=== PATIENT | female | born 1945 | race American Indian/Alaskan Native ===

== ENCOUNTER 2018-06-21 17:15 | Emergency (ER) | payer BC, MEDICARE ==
[2018-06-21 17:15] VITALS: BMI 34.7
[2018-06-21 17:24] VITALS: PULSE 67; TEMP 98.2
--- NOTE | 2018-06-21 18:36 | ED PDOC ---
Upper Extremity Pain/Injury Time Seen by Provider: 06/21/18 17:46 Chief Complaint (Nursing): Upper Extremity Problem/Injury Chief Complaint (Provider): Arm and shoulder pain History Per: Patient, EMS History/Exam Limitations: no limitations Onset/Duration Of Symptoms: Mins Current Symptoms Are (Timing): Still Present Pain Scale Rating Of: 8 Additional Complaint(s): 72 year old female presents to the ER via EMS complaining of right arm, right shoulder, and left elbow pain after missing a step and falling on her side today. She also reports having neck pain, frontal headache, and swelling to her lip. Patient states she was unable to get up after falling. Patient rates pain to be a 8/10. Denies LOC, numbness or tingling, visual changes, ligthheaded, dizzy, chest pain or SOB. PMD: Dr. Baires Past Medical History Reviewed: Historical Data, Nursing Documentation, Vital Signs Vital Signs: Last Vital Signs Temp 98.2 F 06/21/18 17:22 Pulse 67 06/21/18 17:22 Resp 19 06/21/18 17:22 BP 130/83 06/21/18 17:22 Pulse Ox 100 06/21/18 17:22 - Medical History PMH: HTN, Hypercholesterolemia, Malignancy (right breast), Peripheral Edema (chronic ankle swelling) Denies: Diabetes, HIV, Chronic Kidney Disease Other PMH: tremors - Surgical History Surgical History: No Surg Hx - Family History Family History: States: Hypertension - Home Medications Home Medications: Ambulatory Orders Medication Instructions Recorded Atorvastatin [Lipitor] 40 mg PO HS 05/04/16 Candesartan/Hydrochlorothiazid 1 tab PO DAILY 05/04/16 [Candesartan-Hctz 16-12.5 mg Tb] Ergocalciferol (Vitamin D2) 2,000 iu PO DAILY 05/04/16 [Vitamin D] Exemestane 25 mg PO DAILY 05/04/16 Alto-3S/Dha/Epa/Fish Oil [Fish 1 tab PO DAILY 05/04/16 Oil Alto-3 Softgel] Primidone [Mysoline] 250 mg PO TID 05/04/16 Propranolol HCl [Inderal Xl] 120 mg PO DAILY 05/04/16 Ubidecarenone [Coenzyme Q10] 100 mg PO BID 05/04/16 Acetaminophen [Tylenol 325mg tab] 650 mg PO Q4 PRN #0 tab 05/07/16 Dabigatran [Pradaxa] 150 mg PO BID #60 cap 05/07/16 Acetaminophen [8 Hour Pain Relief] 650 mg PO Q8 PRN #20 tablet.er 06/21/18 - Allergies Allergies/Adverse Reactions: Allergies Allergy/AdvReac Type Severity Reaction Status Date / Time Penicillins Allergy RASH Verified 08/08/16 13:11 Review of Systems ROS Statement: Except As Marked, All Systems Reviewed And Found Negative Musculoskeletal: Positive for: Shoulder Pain (right), Arm Pain (right), Other (left elbow pain; swelling to lip) Neurological: Positive for: Headache Physical Exam - Reviewed Nursing Documentation Reviewed: Yes Vital Signs Reviewed: Yes - Physical Exam Comments: GENERAL APPEARANCE: Patient is awake, alert, oriented x 3, in no acute distress. HEAD: resting tremor of head, otherwise atraumatic ENMT: Ear: (-) hemotympanum; Mouth: left upper lip mild swelling and tenderness; 2 healed abrasions inside upper lip NECK: right paraspinal tenderness, (-)bony step off (-) crepitus (+) FROM SKIN: Warm, dry; (-) cyanosis. CHEST AND RESPIRATORY: (-) chest wall tenderness. Lungs: (-) rales, (-) rhonchi, (-) wheezes; breath sounds equal bilaterally. HEART AND CARDIOVASCULAR: (-) irregularity; (-) murmur, (-) gallop. EXTREMITIES: less than 2 second capillary refill; distal pulses 2+. Right arm: (+) tenderness to elbow, humerus, shoulder, and clavicle. Left arm: anterior elbow tenderness, NVI all extremities, (+) decrease abduction and flexion of right shoulder, otherwise (+)FROM, no deformity, no swelling NEURO AND PSYCH: Mental status as above. - ECG O2 Sat by Pulse Oximetry: 100 (RA) Pulse Ox Interpretation: Normal Medical Decision Making Medical Decision Making: Initial Impression: Arm and shoulder pain Initial Plan: --Cervical spine CT --Head CT --Thoracic spine CT --Elbow X-ray --Tylenol 650mg PO --Right clavicle X-ray --Right humerus X-ray --Right shoulder X-ray 19:[address] FINDINGS: BRAIN: No acute intraparenchymal hemorrhage. No mass lesion. No CT evidence for acute territorial infarct. No midline shift or extra-axial collections. VENTRICLES: No hydrocephalus. ORBITS: The orbits are unremarkable. SINUSES AND MASTOIDS: The paranasal sinuses and mastoid air cells are clear. BONES: No fracture. SOFT TISSUES: Unremarkable. IMPRESSION: No acute intracranial abnormality. 19:[address] There is straightening of the cervical spine. The vertebral body stature is maintained throughout. There is hypertrophic and degenerative changes with prominent bony spurring the anterior aspect of the vertebral bodies mainly at the C4-C5 C5-C6 and C6-C7 levels. There is calcification of the posterior longitudinal ligament at the C3-C4 level which appears chronic in nature. There is no acute fracture identified. Spinal canal appears preserved. Impression: Moderately advanced hypertrophic and degenerative changes at the C4- C5 C5-C6 and C6-C7 levels. Chronic changes suspected at the C3-C4 level. No acute fracture. Clinical correlation advised. 19:[address] There is satisfactory alignment of the vertebral bodies. The vertebral body stature is maintained throughout. There is hypertrophic and degenerative change at the cervicothoracic junction as well as hypertrophic and degenerative changes with chronic disc disease at multiple levels lower thoracic spine. There is no acute fracture or dislocation. Spinal canal appears preserved. Impression: Mild to moderate hypertrophic degenerative changes at the cervicothoracic junction as well as at the lower thoracic spine. No acute fracture identified. Clinical correlation advised. 20:38 Elbow X-ray reviewed by me: no acute fractures or dislocation; right elbow: moderate DJD and calcification in the humerus. No fat pad bilaterally Clavicle X-ray reviewed by me: no acute fractures or dislocations Humerus X-ray reviewed by me: no acute fractures or dislocations Right shoulder X-ray reviewed by me: DJD; no acute fractures or dislocations informed pt of results and will be informed if any discrepancies with radiology read On re eval pt reports feeling better Discussed results, diagnosis, treatment, return precautions and f/u with pt who is understanding, inagreement and stable for dc Scribe Attestation: Documented by Italo Lynch acting as a scribe for Demario SINGH. Provider Scribe Attestation: All medical record entries made by the Scribe were at my direction and personally dictated by me. I have reviewed the chart and agree that the record accurately reflects my personal performance of the history, physical exam, medical decision making, and the department course for this patient. I have also personally directed, reviewed, and agree with the discharge instructions and disposition. Disposition - Clinical Impression Clinical Impression: Fall (on) (from) other stairs and steps, initial encounter, Disc disease, degenerative, cervical, Sprain of upper arm, right, Muscle spasm - Patient ED Disposition Is Patient to be Admitted: No Counseled Patient/Family Regarding: Studies Performed, Diagnosis, Need For Followup, Rx Given - Disposition Referrals: Catrachito Gamez MD [Staff Provider] - Zane Baires MD [Staff Provider] - Disposition: Routine/Home Disposition Time: 20:55 Condition: IMPROVED Additional Instructions: Take medications as prescribed for pain. Rest, use heating pads and hot showers to soothe muscles Thank you for letting us take care of you today. The emergency medical care you received today was directed at your acute symptoms. If you were prescribed any medication, please fill it and take as directed. It may take several days for your symptoms to resolve. Return to the Emergency Department if your symptoms worsen, do not improve, or if you have any other problems. Please contact your doctor in 2 days for re-evaluation and follow up / or call one of the physicians/clinics you have been referred to that are listed on the Patient Visit Information form that is included in your discharge packet. Bring any paperwork you were given at discharge with you along with any medications you are taking to your follow up visit. Our treatment cannot replace ongoing medical care by a primary care provider (PCP) outside of the emergency department. Thank you for allowing the [facility] team to be part of your care today. If you had an X-Ray : A Radiologist will review the ED reading if any change in treatment is needed we will contact you. Prescriptions: Acetaminophen [8 Hour Pain Relief] 650 mg PO Q8 PRN #20 tablet.er PRN Reason: Pain, Moderate (4-7) Instructions: Degenerative Disc Disease, Preventing Falls in the Older Adult, Muscle Spasms (DC), Elbow Sprain (DC) Forms: [employer] (Korean) Print Language: TRINIDADIAN - POA Present On Arrival: Falls Or Trauma
[2018-06-21 21:01] VITALS: BP 168/98; RESP 18
[2018-06-22 00:25] VITALS: O2SAT 100
--- NOTE | 2018-06-22 09:48 | RAD ---
Date of service: 06/21/2018 PROCEDURE: Radiographs of the Right Shoulder HISTORY: trauma, fall COMPARISON: No prior. TECHNIQUE: 3 views obtained. FINDINGS: BONES: Degenerative changes of the right shoulder are noted. No fracture is seen. No lytic process is noted. No AC joint widening is seen. Visualized clavicle is intact. Right humeral shaft and right ribs are intact. Bony glenoid is intact. JOINTS: Degenerative changes. SOFT TISSUES: Normal. OTHER FINDINGS: None. IMPRESSION: No appreciable fracture or dislocation of the right shoulder.
--- NOTE | 2018-06-22 09:49 | RAD ---
PROCEDURE: Radiographs of the right humerus. HISTORY: trauma, fall COMPARISON: None. TECHNIQUE: 2 views obtained. FINDINGS: BONES: Frontal lateral views of the right humerus were performed. Four images were performed to obtain complete coverage. No fracture is seen. No periosteal reaction is noted. No lytic process is identified. There is a small probable medullary infarct in the distal right humeral shaft. Visualized right elbow is unremarkable. SOFT TISSUES: Normal. OTHER FINDINGS: None. IMPRESSION: No appreciable fracture. 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
--- NOTE | 2018-06-22 09:50 | RAD ---
Date of service: 06/21/2018 PROCEDURE: Radiographs of the right clavicle. HISTORY: trauma, fall COMPARISON: None. TECHNIQUE: 2 views obtained. FINDINGS: RIGHT CLAVICLE: No fracture or focal lesion. JOINTS: Moderate AC joint DJD. SOFT TISSUES: Grossly unremarkable. OTHER FINDINGS: None. IMPRESSION: No fracture of the right clavicle.
--- NOTE | 2018-06-22 09:51 | RAD ---
Date of service: 06/21/2018 PROCEDURE: HISTORY: trauma, fall COMPARISON: No prior TECHNIQUE: Three views of the right elbow in three views of the left elbow were performed for trauma. No joint effusions are seen. No fractures are identified. No lytic process is seen. Radial heads are intact. There is right greater than left degenerative changes with probable bilateral chronic appearing epicondylitis identified. Small benign appearing medullary infarct in the distal right humerus is noted. No loose bodies are seen. FINDINGS: See above. IMPRESSION: No appreciable fracture or joint effusion.
--- NOTE | 2018-06-22 10:42 | CT ---
Date of service: 06/21/2018 PROCEDURE: CT HEAD WITHOUT CONTRAST. HISTORY: trauma, fall COMPARISON: 09/26/2009 TECHNIQUE: Axial computed tomography images were obtained through the head/brain without intravenous contrast. Radiation dose: Total exam DLP = 856.36 mGy-cm. This CT exam was performed using one or more of the following dose reduction techniques: Automated exposure control, adjustment of the mA and/or kV according to patient size, and/or use of iterative reconstruction technique. FINDINGS: HEMORRHAGE: No intracranial hemorrhage. BRAIN: No mass effect or edema. Diffuse cerebral cortical atrophy and small vessel changes are noted in the white matter tracts. No cortical effacement is seen VENTRICLES: . CALVARIUM: Unremarkable. PARANASAL SINUSES: Unremarkable as visualized. No significant inflammatory changes. MASTOID AIR CELLS: Unremarkable as visualized. No inflammatory changes. OTHER FINDINGS: None. IMPRESSION: No evidence of intracranial hemorrhage or recent infarct. There appears to been progression of atrophy and small-vessel changes from the prior study from 2009. This agrees with preliminary report.
--- NOTE | 2018-06-22 10:48 | CT ---
Date of service: 06/21/2018 PROCEDURE: CT Cervical Spine without contrast HISTORY: trauma, fall COMPARISON: CT chest 2017 TECHNIQUE: Axial computed tomography images were obtained of the cervical spine without the use of intravenous contrast. Coronal and sagittal reformatted images were created and reviewed. Radiation dose: Total exam DLP = 349.95 mGy-cm. This CT exam was performed using one or more of the following dose reduction techniques: Automated exposure control, adjustment of the mA and/or kV according to patient size, and/or use of iterative reconstruction technique. FINDINGS: VERTEBRAE: No fracture is seen. There straightening of the normal lordotic curvature. DISCS/SPINAL CANAL/NEURAL FORAMINA: There is moderate multilevel degenerative disc disease and spondylosis. Posterior disc osteophyte complex at the C3-4 disc space level is causing some chronic appearing compression upon the cervical cord with mild flattening. C1-C2 articulation shows no evidence of abnormal widening. No jumped facets are identified. Degenerative facet changes are seen. PARASPINAL SOFT TISSUES: No prevertebral soft tissue swelling. Calcific atherosclerotic change of the carotid vessels is noted. There is evidence of prominent thyroid gland suggesting goiter. This was noted on prior CT scan of the chest from 2017. This was not mentioned on the preliminary report. OTHER FINDINGS: None. IMPRESSION: No evidence of fracture or malalignment. Moderate degenerative disc disease and spondylosis. Chronic enlarged thyroid goiter on the left seen on prior CT scan of the chest dated 02/12/2017.
--- NOTE | 2018-06-22 11:10 | CT ---
Date of service: 06/21/2018 PROCEDURE: CT Thoracic Spine without contrast HISTORY: trauma, fall COMPARISON: None available. TECHNIQUE: Axial computed tomography images were obtained of the thoracic spine without intravenous contrast. Coronal and sagittal reformatted images were created and reviewed. Radiation dose: Total exam DLP = 804.08 mGy-cm. This CT exam was performed using one or more of the following dose reduction techniques: Automated exposure control, adjustment of the mA and/or kV according to patient size, and/or use of iterative reconstruction technique. FINDINGS: VERTEBRAE: No vertebral body fracture identified.. DISCS/SPINAL CANAL/NEURAL FORAMINA: Multilevel degenerative disc disease. Areas of bony neural foraminal narrowing are seen. Posterior ribs and spinous processes are intact. Visualized lungs and paraspinal regions show no evidence of acute related trauma, pneumothorax, or infiltrate. Left-sided thyroid goiter is once again noted.. PARASPINAL SOFT TISSUES: No paraspinal masses.. OTHER FINDINGS: Unremarkable. IMPRESSION: Moderate multilevel degenerative disc disease. No evidence of acute compression fracture or malalignment.
== END 2018-06-21 21:05 | disposition home or self-care (01) ==
LOC: H.ER 17:15
DX: S43.401A Unspecified sprain of right shoulder joint, initial encounter (principal); M62.838 Other muscle spasm; I10 Essential (primary) hypertension; Z88.0 Allergy status to penicillin; Z85.3 Personal history of malignant neoplasm of breast; W10.9XXA Fall (on) (from) unspecified stairs and steps, initial encounter